=== PATIENT | male | born 1965 ===

== ENCOUNTER 2017-09-23 12:14 | Day surgery (SDC) | payer BC ==
[2017-09-20 12:14] VITALS: BMI 32.5
[2017-09-23 12:46] VITALS: TEMP 97.7
[2017-09-23] MEDS ORDERED: Lidocaine 2% MPF (5 ml) Inj ONE (14:05)
[2017-09-23] MEDS ORDERED: ceFAZolin 1 gm in NS 0 GM/0 ML BAG IVPB ONE (14:05)
[2017-09-23] MEDS ORDERED: Bupivacaine HCl 0.5% PF (30 ml) Inj ONE (14:05)
[2017-09-23] MEDS ORDERED: Bacitracin Ointment 30 GM TUBE ONE (14:48)
--- NOTE | 2017-09-23 15:02 | PCM.SURG1 ---
Surgeon's Initial Post Op Note - Surgeon's Notes Surgeon: Dr. Coelho, DPM [employer] Operator: Alyssa Em PGY1 Type of Anesthesia: Local (20cc 1:1 mixture 2% lidocaine plain & 0.5% marcaine plain) Anesthesia Administered By: Arti CARTER (monitoring only) Pre-Operative Diagnosis: L Achilles tendinitis Operative Findings: See operative report. Materials: PRP 5cc, Amniovo 3cc Post-Operative Diagnosis: Same Operation Performed: Left ankle PRP and Amniovo injection Specimen/Specimens Removed: None Estimated Blood Loss: EBL {In ML}: 1 Blood Products Given: N/A Drains Used: No Drains Post-Op Condition: Good Date of Surgery/Procedure: 09/23/17 Time of Surgery/Procedure: 15:01
[2017-09-23 15:17] VITALS: BP 131/83; PULSE 64; RESP 64; O2SAT 98
--- NOTE | 2017-09-27 06:31 | OP ---
PROCEDURE DATE: 09/23/2017 PREOPERATIVE DIAGNOSIS: Left Achilles tendinitis. POSTOPERATIVE DIAGNOSIS: Left Achilles tendinitis. PROCEDURE: Left ankle platelet rich plasma and Amniovo injection. SURGEON: Dr. Myah Coelho DPM CARPENTER STREETCAR: Dr. Tru Em, PGY-1 TYPE OF ANESTHESIA: Local, 20 mL of 1:1 mixture 2% lidocaine plain and 0.5% Marcaine plain. ANESTHESIA ADMINISTERED BY: EMMA Chi (monitoring only) INDICATIONS: The patient is a 52-year-old male with the above diagnosis. The patient has exhausted all conservative treatment at this time and now requests surgical intervention. The patient signed the consent after careful explanation of risks, benefits, alternatives, and complications to the procedure and wishes to proceed. No guarantees were given or implied. PREPARATION: The patient was brought into the operating room and placed on operating room table in the prone position. Time-out was performed for identification of the correct patient and procedure. The patient received a total of 20 mL of 1:1 mixture of 2% lidocaine plain and 0.5% Marcaine plain proximally to the Achilles tendon. Once local anesthesia was achieved, the left lower extremity was prepped and draped in normal sterile manner and the procedure began. DESCRIPTION OF PROCEDURE: Attention was directed to the posterior aspect of the patient's left ankle. Approximately, 3 mL of Amniovo was injected into the patient's Achilles tendon. Next, platelet rich plasma was injected into the Achilles tendon and the surrounding soft tissue. The left ankle was then dressed with 4x4, Kerlix, and FAZAL wrap. POSTOPERATIVE CONDITION: The patient tolerated the anesthesia and procedure well, was escorted to the recovery room with vital signs stable and neurovascular status intact to the left lower extremity. The patient is to be weightbearing as tolerated to the left lower extremity in a surgical shoe. The patient will follow up with Dr. Coelho as outpatient. Tru Em DPM Myah Coelho DPM [facility]
== END 2017-09-23 15:34 | disposition home or self-care (01) ==
LOC: C.SDS 12:14
PROVIDERS: ATTEND Podiatrist Foot & Ankle Surgery
DX: M76.62 Achilles tendinitis, left leg (principal)
CPT/HCPCS: 0232T; Q4139